=== PATIENT | male | born 1975 | race Caucasian/White ===

== ENCOUNTER → 2018-05-26 | Outpatient (CLI) | payer OTHER | LOC: CAT 08:07 | DX: Z13.6 Encounter for screening for cardiovascular disorders (principal); E78.00 Pure hypercholesterolemia, unspecified ==

== ENCOUNTER → 2018-12-29 | Outpatient (CLI) | payer BC, OTHER | LOC: MRI 10:48 | DX: S83.412A Sprain of medial collateral ligament of left knee, initial encounter (principal); M22.42 Chondromalacia patellae, left knee; Y93.29 Activity, other involving ice and snow; Y93.89 Activity, other specified; Y92.89 Other specified places as the place of occurrence of the external cause; Y99.8 Other external cause status ==